=== PATIENT | male | born 1980 | race Caucasian/White ===

== ENCOUNTER → 2024-07-01 11:25 | Outpatient (CLI) | payer BC, SELFPAY ==
[2024-07-01 18:33] LABS: Add Manual Diff / Slide Review NO; Basophils Absolute Auto 100 /uL (0-100); Basophils Percent Auto 0.8 % (0-2); Eosinophils Absolute Auto 400 /uL (0-450); Eosinophils Percent Auto 5.3 % (2-4); Hematocrit 38.7 % (41-53); Hemoglobin 12.8 g/dL (13.5-17.5); Lymphocytes Absolute Auto 2000 /uL (1100-4500); Lymphocytes Percent Auto 30.3 % (25-40); Mean Corpuscular HGB Conc 33.2 % (30-36); Mean Corpuscular Hemoglobin 28.7 PG (26-34); Mean Corpuscular Volume 86.6 fL (80-100); Monocytes Absolute Auto 700 /uL (0-900); Neutrophils Absolute Auto 3600 /uL (1500-7000); Neutrophils Percent Auto 53.6 % (50-75); Platelet Count 274 X10^3/uL (150-400); Red Blood Cell Count 4.47 X10^6/uL (4.5-5.9); Red Cell Distribution Width 15.2 % (11.6-14.8); White Blood Cell Count 6.7 X10^3/uL (4.5-11.0)
[2024-07-01 18:36] LABS: Alanine Aminotransferase 17 IU/L (<50); Albumin 4.6 g/dL (3.5-5.0); Albumin Globulin Ratio 1.8 (1.0-2.8); Alkaline Phosphatase 89 U/L (38-126); Aspartate Aminotransferase 35 IU/L (17-59); BUN Creatinine Ratio 11.5 (6-22); Bilirubin Total 0.6 mg/dL (0.2-1.3); Blood Urea Nitrogen 9 mg/dL (9-20); Calcium 9.1 mg/dL (8.4-10.2); Carbon Dioxide 27 mmol/L (22-32); Chloride 101 mmol/L (98-107); Estimated Glomerular Filt Rate > 60 mL/min (>60); Globulin 2.5 g/dL (1.7-4.1); Glucose 106 mg/dL (70-100); HEMOLYSIS 15 (0-50); Potassium 4.3 mmol/L (3.4-5.1); Sodium 136 mmol/L (137-145); Total Protein 7.1 g/dL (6.3-8.2)
== END ==
PROVIDERS: PCP Physician Assistant; Visit Provider Physician Assistant
DX: K62.5 Hemorrhage of anus and rectum (principal); F10.90 Alcohol use, unspecified, uncomplicated
CPT/HCPCS: 80053; 85025

== ENCOUNTER 2024-09-11 09:22 | Day surgery (SDC) | payer BC, SELFPAY ==
--- NOTE | 2024-09-11 | PATH_ITS ---
[facility] Accession Number: [id number] No. of containers..01 Tissue . 01 Material submitted: . colon - ASCENDING COLON POLYP . 01 Diagnosis: ASCENDING COLON POLYP: Tubular adenoma. STO 09/15/20241831 Local . 01 Electronically signed: . Bill Ramirez MD, Pathologist NPI- [id number] . 01 Gross description: . ASCENDING COLON POLYP: Received in formalin are multiple fragment(s) of tony, soft tissue measuring 0.3 x 0.2 x 0.2 cm to 0.7 x 0.5 x 0.4 cm submitted entirely in 1 cassette(s) /ALEJANDRA 09/15/20241831 Local . 01 Pathologist provided ICD-10: D12.2 . 01 CPT . 155154 Specimen Comment: A courtesy copy of this report has been sent to [facility] Performed at: [address] [address], [place], [place] [id number] MD Bill Ramirez MD Phone: [phone]
[2024-09-11 09:52] VITALS: BP 140/88; PULSE 86; RESP 16; TEMP 36.3; O2SAT 99
[2024-09-11] MEDS: LACTATED RINGERS 1,000 ML 150 ML IV (09:58)
[2024-09-11] MEDS: ALBUTEROL/IPRATROPIUM 3 ML AMPUL INH (10:01)
--- NOTE | 2024-09-11 10:38 | PM.PREOP ---
Pre-operative Note Interval Note History & Physical reviewed/Exam performed by Physician: Yes Changes to H&P: No
--- NOTE | 2024-09-11 11:03 | PM.OP.COLON ---
Operative Date/Time/Diagnoses Date of procedure: 09/11/24 Time of procedure: 11:03 Pre-op diagnosis: Colon screening, prolapsed internal hemorrhoids Post-op diagnosis: same (Ascending colon polyp) Procedure & Clinicians Study performed: 1. Colonoscopy with cold snare polypectomy of ascending colon polyp 2. Anoscopy with rubber-band ligation of internal hemorrhoids x2 Same procedure as scheduled: Yes Indications: Colon screening, bleeding hemorrhoids Surgeon: Adan Belle Procedure Notes SCOAP/Timeout: Performed Procedure in detail: Time-out was performed. Mac was induced. Patient was placed in left lateral decubitus position. The perineum was inspected without any gross abnormality. Lubricated pediatric colonoscope was inserted and advanced to the cecum. The terminal ileum was intubated. The colonoscope was withdrawn slowly inspecting the circumference of the colon. Polyp was noted in the ascending colon. This was removed completely with cold snare polypectomy and retrieved. Very small polyps may have been missed, prep quality was adequate. Retroflexed view of the rectum showed medium, prolapsed nonbleeding internal hemorrhoids. Anoscope was inserted and rubber-band suctioned ligated was used to perform rubber-band ligation of a right posterior and left middle quadrant internal hemorrhoids. The scope was withdrawn the patient was taken to PACU in good condition. Scope withdrawal time: 6 Findings: polyp(s) Specimen(s): other (Ascending colon polyp) Complications: none Impression: polyp, hemorrhoids Post-procedure Recommendations: High fiber diet and Other recommendation(s) (Next colonoscopy in 7 years) Follow up: as needed Disposition: PACU
[2024-09-11 11:10] VITALS: BP 115/74; PULSE 75; RESP 15; O2SAT 99
[2024-09-11 11:20] VITALS: BP 115/74; PULSE 72; RESP 16; TEMP 36.2; O2SAT 98
[2024-09-11 11:28] VITALS: BP 123/84; PULSE 66; RESP 16; TEMP 36.2; O2SAT 98
== END 2024-09-11 11:39 | disposition home or self-care (01) ==
PROVIDERS: PCP Physician Assistant; Referring Provider Surgery; Visit Provider Surgery
PROC: 0DJD8ZZ Inspection of Lower Intestinal Tract, Via Natural or Artificial Opening Endoscopic (ICD-10-PCS; CPT 45378; principal; 2024-09-11 10:30)
DX: Z12.11 Encounter for screening for malignant neoplasm of colon (principal); K64.8 Other hemorrhoids; D12.2 Benign neoplasm of ascending colon
CPT/HCPCS: 45385; 46221; J2704